=== PATIENT | male | born 1950 | race Caucasian/White ===

== ENCOUNTER 2020-08-24 16:03 | Emergency (ER) | payer MEDICARE, OTHER ==
[~2020-08-24] VITALS: Ht 188 cm; Wt 81.6 kg
[~2020-08-24 16:03] MED LIST: AMBIEN10 MG PO; ASPIRIN81 M1 PO; VIAGRA25 MG PO
[2020-08-24] MEDS ORDERED: BAMLANIVIMAB 700 MG/20 ML VIAL IV ONE (18:15)
[2020-08-24] MEDS ORDERED: BAMLANIVIMAB 700 MG in SODIUM CHLORIDE 0.9% 250ML 250 ML IV ONE (18:20)
== END 2020-08-24 22:22 | disposition home or self-care (01) ==
LOC: ER 16:50
DX: U07.1 COVID-19 (principal); R53.83 Other fatigue
CPT/HCPCS: 99284; J7050; U0002